=== PATIENT | male | born 1995 ===

== ENCOUNTER 2017-09-29 09:59 | Emergency (ER) | payer OTHER ==
[~2017-09-29] VITALS: Ht 177.8 cm; Wt 81.6 kg
[2017-09-29] MEDS ORDERED: ACIDOPHILUS1 EAC3 PO (13:57)
[2017-09-29] MEDS ORDERED: PROTONIX20 MG PO (13:57)
== END 2017-09-29 16:04 | disposition home or self-care (01) ==
LOC: ER 09:59
DX: R19.7 Diarrhea, unspecified (principal)